=== PATIENT | male | born 1950 | race Caucasian/White ===

== ENCOUNTER 2017-11-06 23:25 | Emergency (ER) | payer BC, MEDICARE ==
--- NOTE | 2017-11-07 00:04 | ED ---
General Adult HPI - General Chief complaint: Chest Pain Stated complaint: chest pain,TEE Time Seen by Provider: 11/06/17 23:49 Source: patient, RN notes reviewed, old records reviewed Mode of arrival: ambulatory Limitations: physical limitation - History of Present Illness Initial comments: This is a 59-year-old male to the ER for evaluation. Patient has history of heart disease but coming in today for evaluation regarding cough and congestion , cough congestion runny nose, 2-3 days. Patient with no significant improvement. Patient denies fevers. Denies travel she denies known sick contacts. No recent hospitalizations. Patient is having difficulty sleeping secondary to cough - Related Data Allergies Allergy/AdvReac Type Severity Reaction Status Date / Time atorvastatin [From Lipitor] Allergy Unknown Verified 11/06/17 23:32 Review of Systems ROS Statement: Those systems with pertinent positive or pertinent negative responses have been documented in the HPI. ROS Other: All systems not noted in ROS Statement are negative. Past Medical History Past Medical History: Diabetes Mellitus, Hyperlipidemia Additional Past Medical History / Comment(s): gallstones. History of Any Multi-Drug Resistant Organisms: None Reported Past Surgical History: Coronary Bypass/CABG, Heart Catheterization With Stent, Hernia Repair Past Psychological History: No Psychological Hx Reported Smoking Status: Never smoker Past Alcohol Use History: None Reported Past Drug Use History: None Reported General Exam Limitations: physical limitation General appearance: alert, in no apparent distress Head exam: Present: atraumatic, normocephalic, normal inspection Eye exam: Present: normal appearance, PERRL, EOMI. Absent: scleral icterus, conjunctival injection, periorbital swelling ENT exam: Present: normal exam, mucous membranes moist Neck exam: Present: normal inspection. Absent: tenderness, meningismus, lymphadenopathy Respiratory exam: Present: normal lung sounds bilaterally. Absent: respiratory distress, wheezes, rales, rhonchi, stridor Cardiovascular Exam: Present: regular rate, normal rhythm, normal heart sounds. Absent: systolic murmur, diastolic murmur, rubs, gallop, clicks GI/Abdominal exam: Present: soft, normal bowel sounds. Absent: distended, tenderness, guarding, rebound, rigid Extremities exam: Present: normal inspection, full ROM, normal capillary refill. Absent: tenderness, pedal edema, joint swelling, calf tenderness Back exam: Present: normal inspection Neurological exam: Present: alert, oriented X3, CN II-XII intact Psychiatric exam: Present: normal affect, normal mood Skin exam: Present: warm, dry, intact, normal color. Absent: rash Course Vital Signs 11/06/17 11/07/17 23:27 00:42 Temperature 97.4 F L Pulse Rate 79 70 Respiratory 16 18 Rate Blood Pressure 146/73 110/70 O2 Sat by Pulse 97 97 Oximetry - Reevaluation(s) Reevaluation #1: 11/07/17 01:15 Patient feeling better here in the ER EKG Findings - EKG Comments: EKG Findings:: EKG shows normal sinus rhythm rate of 71, AR 176, QRS 114, QTc 432 Medical Decision Making - Medical Decision Making 59 male the ER for cough congestion and nasal drainage. Patient also spiked of chest pain yesterday. At this time patient has no complaints of pain is consistent cough. Nasal drainage. No fevers. No travel history no sick contacts. Patient was discharged home with symptomatic therapy and antibiotics. At this time patient has no complaints - Lab Data Result diagrams: 11/06/17 23:45 11/06/17 23:45 Lab Results 11/06/17 11/06/17 11/06/17 Range/Units 23:45 23:45 23:45 WBC 9.9 (3.8-10.6) k/uL RBC 4.51 (4.30-5.90) m/uL Hgb 14.1 (13.0-17.5) gm/dL Hct 42.7 (39.0-53.0) % MCV 94.8 (80.0-100.0) fL MCH 31.3 (25.0-35.0) pg MCHC 33.0 (31.0-37.0) g/dL RDW 14.5 (11.5-15.5) % Plt Count 225 (150-450) k/uL Neutrophils % 65 % Lymphocytes % 22 % Monocytes % 8 % Eosinophils % 3 % Basophils % 1 % Neutrophils # 6.4 (1.3-7.7) k/uL Lymphocytes # 2.2 (1.0-4.8) k/uL Monocytes # 0.8 (0-1.0) k/uL Eosinophils # 0.3 (0-0.7) k/uL Basophils # 0.1 (0-0.2) k/uL PT (9.0-12.0) sec INR (<1.2) APTT (22.0-30.0) sec Sodium 139 (137-145) mmol/L Potassium 4.2 (3.5-5.1) mmol/L Chloride 102 (98-107) mmol/L Carbon Dioxide 25 (22-30) mmol/L Anion Gap 12 mmol/L BUN 14 (9-20) mg/dL Creatinine 1.10 (0.66-1.25) mg/dL Est GFR (MDRD) Af Amer >60 (>60 ml/min/1.73 sqM) Est GFR (MDRD) Non-Af >60 (>60 ml/min/1.73 sqM) Glucose 157 H (74-99) mg/dL Calcium 9.3 (8.4-10.2) mg/dL Magnesium 1.7 (1.6-2.3) mg/dL Total Bilirubin 0.5 (0.2-1.3) mg/dL AST 29 (17-59) U/L ALT 61 (21-72) U/L Alkaline Phosphatase 80 (38-126) U/L Total Creatine Kinase 124 (55-170) U/L CK-MB (CK-2) 0.6 (0.0-2.4) ng/mL CK-MB (CK-2) Rel Index 0.5 Troponin I <0.012 (0.000-0.034) ng/mL Total Protein 7.2 (6.3-8.2) g/dL Albumin 4.4 (3.5-5.0) g/dL Lipase 36 (23-300) U/L Influenza Type A RNA (Not Detectd) Influenza Type B (PCR) (Not Detectd) 11/06/17 11/07/17 Range/Units 23:45 00:40 WBC (3.8-10.6) k/uL RBC (4.30-5.90) m/uL Hgb (13.0-17.5) gm/dL Hct (39.0-53.0) % MCV (80.0-100.0) fL MCH (25.0-35.0) pg MCHC (31.0-37.0) g/dL RDW (11.5-15.5) % Plt Count (150-450) k/uL Neutrophils % % Lymphocytes % % Monocytes % % Eosinophils % % Basophils % % Neutrophils # (1.3-7.7) k/uL Lymphocytes # (1.0-4.8) k/uL Monocytes # (0-1.0) k/uL Eosinophils # (0-0.7) k/uL Basophils # (0-0.2) k/uL PT 9.8 (9.0-12.0) sec INR 1.0 (<1.2) APTT 23.9 (22.0-30.0) sec Sodium (137-145) mmol/L Potassium (3.5-5.1) mmol/L Chloride (98-107) mmol/L Carbon Dioxide (22-30) mmol/L Anion Gap mmol/L BUN (9-20) mg/dL Creatinine (0.66-1.25) mg/dL Est GFR (MDRD) Af Amer (>60 ml/min/1.73 sqM) Est GFR (MDRD) Non-Af (>60 ml/min/1.73 sqM) Glucose (74-99) mg/dL Calcium (8.4-10.2) mg/dL Magnesium (1.6-2.3) mg/dL Total Bilirubin (0.2-1.3) mg/dL AST (17-59) U/L ALT (21-72) U/L Alkaline Phosphatase (38-126) U/L Total Creatine Kinase (55-170) U/L CK-MB (CK-2) (0.0-2.4) ng/mL CK-MB (CK-2) Rel Index Troponin I (0.000-0.034) ng/mL Total Protein (6.3-8.2) g/dL Albumin (3.5-5.0) g/dL Lipase (23-300) U/L Influenza Type A RNA Not Detected (Not Detectd) Influenza Type B (PCR) Not Detected (Not Detectd) - Radiology Data Radiology results: report reviewed (Chest x-rays negative), image reviewed Disposition Clinical Impression: URI (upper respiratory infection), Sinusitis Disposition: HOME SELF-CARE Condition: Good Instructions: Upper Respiratory Infection (ED), Sinusitis (ED) Referrals: Martin Ferris MD [Primary Care Provider] - 1-2 days
[2017-11-07 00:08] LABS: Basophils # (A) 0.1 k/uL (0-0.2); Basophils % (A) 1 %; Eosinophils # (A) 0.3 k/uL (0-0.7); Eosinophils % (A) 3 %; HCT 42.7 % (39.0-53.0); HGB 14.1 gm/dL (13.0-17.5); Lymphocytes # (A) 2.2 k/uL (1.0-4.8); Lymphocytes % (A) 22 %; MCH 31.3 pg (25.0-35.0); MCV 94.8 fL (80.0-100.0); Mean Platelet Volume 7.1; Monocytes # (A) 0.8 k/uL (0-1.0); Monocytes % (A) 8 %; Neutrophils # (A) 6.4 k/uL (1.3-7.7); Neutrophils % (A) 65 %; Platelet Count 225 k/uL (150-450); RBC 4.51 m/uL (4.30-5.90); RDW 14.5 % (11.5-15.5); WBC 9.9 k/uL (3.8-10.6)
[2017-11-07 00:15] LABS: Partial Thromboplastin Time 23.9 sec (22.0-30.0); Prothrombin Time 9.8 sec (9.0-12.0)
[2017-11-07 00:16] LABS: ALT 61 U/L (21-72); AST 29 U/L (17-59); Albumin 4.4 g/dL (3.5-5.0); Alkaline Phosphatase 80 U/L (38-126); Anion Gap 12 mmol/L; Blood Urea Nitrogen 14 mg/dL (9-20); Calcium 9.3 mg/dL (8.4-10.2); Carbon Dioxide 25 mmol/L (22-30); Chloride 102 mmol/L (98-107); Glucose 157 mg/dL (74-99); Lipase 36 U/L (23-300); Magnesium 1.7 mg/dL (1.6-2.3); Potassium 4.2 mmol/L (3.5-5.1); Sodium 139 mmol/L (137-145); Total Bilirubin 0.5 mg/dL (0.2-1.3); Total Protein 7.2 g/dL (6.3-8.2)
[2017-11-07 00:31] LABS: Creatine Kinase 124 U/L (55-170)
[2017-11-07 00:44] LABS: Creatine Kinase MB 0.6 ng/mL (0.0-2.4); Troponin I <0.012 ng/mL (0.000-0.034)
--- NOTE | 2017-11-07 00:50 | XR ---
EXAMINATION TYPE: XR chest 2V DATE OF EXAM: 11/07/2017 COMPARISON: NONE HISTORY: Chest pain TECHNIQUE: Frontal and lateral views of the chest are obtained. FINDINGS: There is no heart failure nor confluent pneumonic infiltrate. Costophrenic angles are anibal r. There are sternal wires. There are chest leads. Bony thorax is intact. IMPRESSION: No active cardiopulmonary disease.
[2017-11-07] MEDS ORDERED: AMOXIC-POT CLAV 875MG STARTER 2 EACH TABLET PO STA (01:16)
[2017-11-07] MEDS ORDERED: BENZONATATE 100 MG CAP PO STA (01:16)
[2017-11-07] MEDS ORDERED: ACET/COD 240MG/24MG LIQ 10 ML SYRG PO ONE (01:16)
[2017-11-07] MEDS ORDERED: AMOXIC-POT CLAV 875-125MG 1 EACH TAB PO STA (01:16)
[2017-11-07] MEDS ORDERED: LORATADINE 10 MG TAB PO STA (01:16)
[2017-11-07 01:37] VITALS: BP 123/69; PULSE 74; RESP 20; TEMP 98.3
== END 2017-11-07 01:37 | disposition home or self-care (01) ==
LOC: EC 23:25
DX: J06.9 Acute upper respiratory infection, unspecified (principal); J32.9 Chronic sinusitis, unspecified; Z95.5 Presence of coronary angioplasty implant and graft; Z95.1 Presence of aortocoronary bypass graft; Z88.8 Allergy status to other drugs, medicaments and biological substances
CPT/HCPCS: 36415; 71046; 80053; 82550; 82553; 83690; 83735; 84484; 85025; 85610; 85730; 87502; 93005; 99285

== ENCOUNTER → 2021-11-05 | Outpatient (CLI) | payer MEDICARE ==
--- NOTE | 2021-11-05 15:42 | XR ---
EXAMINATION TYPE: XR shoulder complete RT DATE OF EXAM: 11/05/2021 CLINICAL HISTORY: Recent fall injury with pain TECHNIQUE: Three views of the right shoulder are obtained. COMPARISON: None. FINDINGS: There is no acute fracture/dislocation evident in the right shoulder. The acromioclavicul ar and glenohumeral joint spaces appear within normal limits. The visualized ribs are intact. [place] ing sternal wires are partially imaged. IMPRESSION: There is no acute fracture or dislocation in the right shoulder.
== END | disposition home or self-care (01) ==
LOC: RADXRYALE 14:19
PROVIDERS: ATTEND Family Medicine
DX: M25.511 Pain in right shoulder (principal); S49.91XA Unspecified injury of right shoulder and upper arm, initial encounter; W19.XXXA Unspecified fall, initial encounter